=== PATIENT | male | born 1980 | race Hispanic/Latino ===

== ENCOUNTER 2016-12-28 21:09 | Emergency (ER) | payer OTHER ==
[2016-12-28 21:32] VITALS: RESP 16; TEMP 97.1; O2SAT 99
--- NOTE | 2016-12-28 22:23 | ED PDOC ---
HPI: General Adult Time Seen by Provider: 12/28/16 21:47 Chief Complaint (Nursing): GI Problem Chief Complaint (Provider): rectal pain History Per: Patient History/Exam Limitations: no limitations Onset/Duration Of Symptoms: Days (4) Current Symptoms Are (Timing): Still Present Additional History Per: Patient Additional Complaint(s): 36 y/o male presents with rectal pain x 4 days. Patient notes history of hemorrhoids, states they "flare up" occasionally. Patient states he thinks one of the hemorrhoids may have "burst" because he noted rectal bleeding earlier today. Denies fever, headache, dizziness, nausea/vomiting, abdominal pain, changes in bowel movements. Past Medical History Reviewed: Historical Data, Nursing Documentation, Vital Signs Vital Signs: Last Vital Signs Temp 97.1 F L 12/28/16 21:29 Pulse 93 H 12/28/16 21:29 Resp 16 12/28/16 21:29 BP 170/105 H 12/28/16 21:29 Pulse Ox 99 12/28/16 22:35 - Medical History PMH: No Chronic Diseases - Surgical History Surgical History: No Surg Hx - Family History Family History: States: No Known Family Hx - Social History Current smoker - smoking cessation education provided: Yes - Home Medications Home Medications: Ambulatory Orders Medication Instructions Recorded Hard Fat/Phenylephrine Byron 1 sup [place] BID #28 sup 12/28/16 [Hemorrhoidal 88.7%-0.25%] Naproxen [Naprosyn] 500 mg PO Q12 PRN #20 tablet 12/28/16 traMADol [Ultram] 50 mg PO BID PRN #12 tab 12/28/16 - Allergies Allergies/Adverse Reactions: Allergies Allergy/AdvReac Type Severity Reaction Status Date / Time No Known Allergies Allergy Verified 12/28/16 21:29 Review of Systems ROS Statement: Except As Marked, All Systems Reviewed And Found Negative Gastrointestinal: Positive for: Rectal Pain Physical Exam - Reviewed Nursing Documentation Reviewed: Yes Vital Signs Reviewed: Yes - Physical Exam Appears: Positive for: Well, Non-toxic, No Acute Distress Head Exam: Positive for: ATRAUMATIC, NORMAL INSPECTION, NORMOCEPHALIC Skin: Positive for: Normal Color Eye Exam: Positive for: Normal appearance ENT: Positive for: Normal ENT Inspection Cardiovascular/Chest: Positive for: Regular Rate, Rhythm Respiratory: Positive for: Normal Breath Sounds Gastrointestinal/Abdominal: Positive for: Normal Exam Back: Positive for: Normal Inspection Rectal: Positive for: Hemorrhoids (multiple pink external hemorrhoids, tender to touch; no active bleeding, abscess, surrounding erythema noted), Other (exam chaperoned ant sosa). Negative for: Mass Extremity: Positive for: Normal ROM Neurologic/Psych: Positive for: Alert, Oriented - ECG O2 Sat by Pulse Oximetry: 99 - Progress ED Course And Treament: stool occult test, Toradol IM, tramadol PO Patient educated on findings, discharged with rx naproxen, tramadol, anusol Advised Sitz baths Advised follow up GI, surgery Return to ED for worsening/concerning symptoms. Disposition - Clinical Impression Clinical Impression: Hemorrhoids - Patient ED Disposition Is Patient to be Admitted: No Counseled Patient/Family Regarding: Studies Performed, Diagnosis, Need For Followup, Rx Given - Disposition Referrals: Erwin Javier MD, PhD [Staff Provider] - James Jackson MD [Staff Provider] - Disposition: Routine/Home Disposition Time: 23:31 Condition: IMPROVED Prescriptions: Hard Fat/Phenylephrine Byron [Hemorrhoidal 88.7%-0.25%] 1 sup [place] BID #28 sup Naproxen [Naprosyn] 500 mg PO Q12 PRN #20 tablet PRN Reason: Pain, Moderate (4-7) traMADol [Ultram] 50 mg PO BID PRN #12 tab PRN Reason: Pain, Severe (8-10) Instructions: Hemorrhoids (ED) Forms: [employer] (Turkmen)
[2016-12-29 01:14] VITALS: BP 141/93; PULSE 85
== END 2016-12-29 01:17 | disposition home or self-care (01) ==
LOC: H.ER 21:09
DX: K64.9 Unspecified hemorrhoids (principal)
CPT/HCPCS: 96372; 99282; G0328; J1885